=== PATIENT | female | born 1975 | race Caucasian/White ===

== ENCOUNTER 2019-04-25 05:51 | Day surgery (SDC) | payer OTHER ==
[2019-04-25] MEDS ORDERED: Tylenol #3 PO (12:36)
[2019-04-25] MEDS ORDERED: MORGIDOX100 MG PO (12:36)
== END 2019-04-25 18:10 | disposition home or self-care (01) ==
LOC: CIR.AMB 05:51
DX: N84.0 Polyp of corpus uteri (principal); D25.0 Submucous leiomyoma of uterus

== ENCOUNTER 2022-02-22 07:30 | Inpatient (IN) | payer OTHER ==
[~2022-02-22] VITALS: Ht 167.6 cm; Wt 84.8 kg
[~2022-02-22 07:30] MED LIST: MORGIDOX100 MG PO; Tylenol #3 PO
[2022-02-25] MEDS ORDERED: LEVALBUTEROL TA15 GM (08:20)
[2022-02-25] MEDS ORDERED: TYLENOL325 MG PO (08:20)
[2022-02-25] MEDS ORDERED: Tylenol #3 PO (09:00)
[2022-02-25] MEDS ORDERED: NAPR500T14 PO (09:00)
== END 2022-02-25 11:52 | disposition home or self-care (01) | DRG 743 ==
LOC: O/R 02-24 05:17 → SURG 02-24 07:30 → OB/GYN 02-24 15:22
PROVIDERS: ADMIT Obstetrics & Gynecology; ATTEND Obstetrics & Gynecology
PROC: 0USG0ZZ Reposition Vagina, Open Approach (ICD-10-PCS; 2022-02-24)
PROC: 0TJB8ZZ Inspection of Bladder, Via Natural or Artificial Opening Endoscopic (ICD-10-PCS; 2022-02-24)
PROC: 0UT90ZZ Resection of Uterus, Open Approach (ICD-10-PCS; principal; 2022-02-24 12:30)
DX: N84.0 Polyp of corpus uteri (principal); Z20.822 Contact with and (suspected) exposure to COVID-19; N72 Inflammatory disease of cervix uteri; N81.11 Cystocele, midline